=== PATIENT | female | born 1985 | race Caucasian/White ===

== ENCOUNTER 2016-09-27 19:53 | Emergency (ER) | payer OTHER ==
[~2016-09-27] VITALS: Ht 160 cm; Wt 113.4 kg
[2016-09-27] MEDS ORDERED: TRINATE TABLET1 TAB PO (19:55)
[2016-09-27 20:46] LABS: BASOPHILS 0.5 % (0.0-2.0); EOSINOPHILS 1.3 % (0.0-3.0); HEMOGLOBIN 12.8 gm/dL (12.0-15.0); LYMPHOCYTES 17.1 % (24.0-44.0); MCH 29.6 pg (26.0-34.0); MCHC 33.8 g/dL (28.0-37.0); MCV 87.5 fL (80.0-100.0); MONOCYTES 5.1 % (1.0-8.0); PLATELET COUNT 270 thou/uL (150-400); RBC 4.34 mil/uL (4.20-5.00); RDW 12.7 % (10.5-14.5); WBC 13.1 thou/uL (4.0-11.0)
[2016-09-27 20:50] LABS: MANUAL DIFF NO
[2016-09-27 20:55] LABS: CALCIUM 9.2 mg/dL (8.5-10.1); CREATININE 0.8 mg/dL (0.6-1.0)
[2016-09-27 21:00] LABS: TOTAL BILIRUBIN 0.5 mg/dL (<0.1-1.0); TOTAL PROTEIN 7.6 g/dL (6.4-8.2)
[2016-09-27] MEDS ORDERED: ATIVAN0.5 MG PO (21:06)
[2016-09-27] MEDS ORDERED: ZOFRAN ODT4 MG DISSOLVE (21:06)
[2016-09-27 21:36] LABS: URINE BILIRUBIN NEGATIVE (Negative); URINE BLOOD NEGATIVE (Negative); URINE COLOR YELLOW; URINE GLUCOSE-RANDOM* NEGATIVE (Negative); URINE KETONES TRACE (Negative); URINE LEUKOCYTES-REFLEX NEGATIVE (Negative); URINE PROTEIN (DIPSTICK) TRACE (Negative); URINE SPECIFIC GRAVITY >= 1.030 (1.003-1.035); URINE UROBILINOGEN 0.2 E.U./dl (0.2-1.0)
[2016-09-27 22:09] VITALS: BP 128/78
== END 2016-09-27 22:12 | disposition home or self-care (01) ==
LOC: ER 19:53
PROVIDERS: Emergency Medicine
DX: R20.9 Unspecified disturbances of skin sensation (principal); R00.2 Palpitations; R11.2 Nausea with vomiting, unspecified